=== PATIENT | male | born 1980 | race Caucasian/White ===

== ENCOUNTER 2017-01-30 00:32 | Emergency (ER) | payer OTHER ==
--- NOTE | 2017-01-30 01:59 | ED CLINICAL REPORT ---
Clinical Report - Physicians/Mid Levels [facility] [address] [place] [address] 01/30/2017 0:36 Patient: WILFREDO MANZANO Time Seen: 00:52. Arrived- By private vehicle. Historian- patient. HISTORY OF PRESENT ILLNESS Chief Complaint: LOWER EXTREMITY PAIN and ALTERED SENSATION. This started months ago and is still present. Severity is described as being moderate. The quality is noted to be dull, burning and similar to prior episodes (numbness). Not relieved by anything- worsened by standing. Symptoms located in the area of the right foot and left foot. The patient has not had redness. No swelling, bladder dysfunction, bowel dysfunction or motor loss. No difficulty walking. Sensory loss. Patient notes an injury. Patient denies a recent injury. Mechanism of injury- (Pt had a back injury at work, and has had ongoing issues with this. He has been trying to get L&I to send him to a back surgeon, and states that now, his new PCP has taken him off of his chronic pain medication and cleared him for return to work.). Similar symptoms previously: Many times. Recent medical care: The patient was seen recently at another facility in a clinic. REVIEW OF SYSTEMS No cough, chest pain, difficulty breathing, fever or skin rash. No enlarged lymph nodes, neck pain, back pain, headache or blurred vision. No sore throat, abdominal pain, vomiting, diarrhea or black stools. No difficulty with urination or bloody stools. All systems otherwise negative, except as recorded above. PAST HISTORY Problems: Diverticulitis. Gout. Peripheral Neuropathy. Peptic Ulcer Disease. Gastroesophageal Reflux Disease. Ulcers. Back Pain. Gastritis. Immunizations. Additional Surgeries: Diverticulitis. Medications: Methadone HCl Oral (Tablet 10 mg), 2xdaily. Allergies: Tylenol.(nausea). SOCIAL HISTORY Smoker- current status unknown. Occasional alcohol use. No drug use. ADDITIONAL NOTES The nursing notes have been reviewed. PHYSICAL EXAM Vital Signs: 01/30/2017 00:46 BP: 146/97. HR: 112. RR: 16. O2 saturation: 100%. Temp: 99.7 F. Pain level now: 10/28. Have been reviewed. Appearance: Alert. Oriented X3. No acute distress. Eyes: Pupils equal, round and reactive to light. Eyes normal inspection. ENT: Nose normal. Neck: Normal inspection. CVS: Normal heart rate and rhythm. Heart sounds normal. Respiratory: No respiratory distress. Breath sounds normal. Abdomen: Soft and nontender. Back: Mild vertebral tenderness over the mid and lower lumbar spine. Soft tissue tenderness in the right mid and lower and left mid and lower lumbar paraspinous region. Limited ROM in the back. Skin: Skin intact. Skin warm and dry. Normal skin color. Normal skin turgor. Extremities: No lower extremity edema. No signs of infection involving the lower extremities. Extremities otherwise negative. Neuro, Vascular and Tendons: No pulse deficit present. Neuro: Oriented X 3. No motor deficit. No sensory deficit. LABS, X-RAYS, AND EKG Pulse Oximetry: 01/30/2017 00:46 O2 saturation: 100%. (FIO2 - room air). Interpretation: normal. PROGRESS AND PROCEDURES Course of Care: I did speak with pt for a long while. His sx were largely chronic, and he was mainly concerned about the sensory deficit, which he stated his new PCP did not address. I agreed to refer pt to a new PCP, and I did amend his back to work order for now. No medications were given in the ED or as a prescription. Patient counseled in person regarding the patient's stable condition, diagnosis and need for follow-up. Concerns were addressed. Old medical records reviewed. Disposition: Discharged. Condition: stable. 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 INSTRUCTIONS Return to work (No bending, no work with arms above head, no working on ladders, no standing for more than 30 minutes without a 5 minute break from standing, until Mr. Manzano's new primary care physician (first appointment to follow) can evaluate him.). Warnings: Further evaluation is necessary. GENERAL WARNINGS: Return or contact your physician immediately if your condition worsens or changes unexpectedly, if not improving as expected, or if other problems arise. Your Current Medications: CONTINUE TAKING THE FOLLOWING MEDICATIONS: Methadone HCl Oral : Tablet 10 mg, 2xdaily. Understanding of the discharge instructions verbalized by patient. Follow-up with: [facility], Family Practice, , [address] [place] [address], [address], [place] [id number] Follow up. Call for the next available appointment. Reason for referral: Establish care. (Electronically signed by Grace Valdez MD 02/02/2017 19:46)
--- NOTE | 2017-01-30 01:59 | ED NURSING NOTES ---
Clinical Report - Nurses [facility] [address] [place] [place] [address] 01/30/2017 0:36 Patient: WILFREDO LEE [id number] TRIAGE Triage time 00:45 Jan 30 2017. Acuity: LEVEL 3. Chief Complaint: RIGHT LOWER EXTREMITY NUMBNESS. LEFT LOWER EXTREMITY NUMBNESS. Alert. DIANNE COMA SCORE: Dianne Coma Scale: 15- eyes open spontaneously (4); best verbal response- oriented x 4 (5); best motor response- obeys commands (6). --00:58 Diogenes Ho R.N. 00:46 01/30/17. BP: 146/97. HR: 112. RR: 16. O2 saturation: 100% on room air. Temp: 99.7 F (oral). Pain level now: 10. Additional comments: feet discomfort. --00:58 Diogenes Ho R.N. Weight: 102 kg stated. Height/Length: 73 inches Per Patient. BMI: 29.7. --00:58 Diogenes Ho R.N. Medications Methadone HCl Oral (Tablet 10 mg), 2xdaily. --00:51 Diogenes oH R.N. Medication/allergy information source: the patient. --00:58 Diogenes Ho R.N. Allergies Tylenol.(nausea) --00:51 Diogenes Ho R.N. History Arrived by private vehicle. Historian: patient. Accompanied by family. Primary physician (Vitaliy). ( Bilateral foot pain/numbness. Pt associates his feet problems to a back injury 2 years ago. His new PCP is going to cut off his Methadone tomorrow.). An injury may have occurred. Location of injuries: lower back, back, right shoulder and left shoulder. This occurred (about 4 months ago (onset)). Occurred at work. Provoking / relieving factors: worsened by standing and walking; relieved by standing and walking. (worsen the numbness). The patient has had trouble walking. Treatment IT HELP DESK ANALYST: None. PAST MEDICAL HX: Tetanus status: unknown. SOCIAL HX: Smoker- current status unknown (chews tobacco). Alcohol use; consumes beer occasionally and liquor occasionally. (cut back 7 months ago). No drug use. No infectious disease exposure. ABUSE ASSESSMENT: No report of abuse. FALL RISK ASSESSMENT: Fall risk assessment completed. No fall risk identified. NUTRITIONAL RISK ASSESSMENT: The nutritional risk assessment revealed no deficiencies. FUNCTIONAL ASSESSMENT: Functional assessment: no impairments noted. LEARNING NEEDS ASSESSMENT: The learning needs assessment revealed no barriers. SKIN INTEGRITY ASSESSMENT: Skin integrity risk assessment completed. No skin integrity risk identified. --00:58 Diogenes Ho R.N. PROBLEMS: Diverticulitis. Gout. Peripheral Neuropathy. Abdominal Pain. Peptic Ulcer Disease. Gastroesophageal Reflux Disease. Ulcers. Back Pain. Gastritis. Immunizations. --00:56 Diogenes Ho R.N. The following entry was modified by Diogenes Ho R.N., 00:56 <<STRICKEN ENTRY-- Hypertension. --17:30 Diogenes Ho R.N. --END STRIKE>>. ADDITIONAL SURGERIES: Diverticulitis. --00:56 Diogenes Ho R.N. Interventions ID band on patient. To treatment room. --00:58 Diogenes Ho R.N. PHYSICAL ASSESSMENT Ambulatory to room. GENERAL / NEURO / PSYCH: Oriented X 4. EXTREMITIES: Extremity pulses are within normal limits. Extremities exhibit normal ROM. No lower extremity edema. Normal gait. SKIN: Skin intact. Skin is warm and dry. --00:59 Diogenes Ho R.N. NURSING PROGRESS NOTES Reassurance given. Patient identifiers checked. Call light placed in reach. Side rails up x 1. Bed placed in lowest position. Brakes of bed on. Patient ready for evaluation- chart flagged and ED physician notified. --00:59 Diogenes Ho R.N. DISPOSITION / DISCHARGE Departure time: 0230. Condition at departure: unchanged. Discharge instructions provided and reviewed with the patient. Reviewed medication(s). Prescription(s) given to the patient (Lisinopril). Patient verbalized understanding. Written instructions provided in French. The patient was discharged by the physician. He was discharged home and unaccompanied at time of discharge. He left the Emergency Department ambulatory and via private vehicle. Patient driving. Medication list reviewed and validated with the patient. --02:51 Charu Stokes R.N. 02:30 01/30/17. BP: 140/90. HR: 100. RR: 18 (unlabored). O2 saturation: 100% on room air. Temp: deferred. Pain level now: 10/28. --02:51 Charu Stokes R.N. Locked/Released at 01/30/2017 2:51 by Charu Stokes R.N.
--- NOTE | 2017-01-30 01:59 | ED CLINICAL REPORT ---
Clinical Report - Physicians/Mid Levels [facility] [address] [place] [address] 01/30/2017 0:36 Patient: WILFREDO MANZANO Time Seen: 00:52. Arrived- By private vehicle. Historian- patient. HISTORY OF PRESENT ILLNESS Chief Complaint: LOWER EXTREMITY PAIN and ALTERED SENSATION. This started months ago and is still present. Severity is described as being moderate. The quality is noted to be dull, burning and similar to prior episodes (numbness). Not relieved by anything- worsened by standing. Symptoms located in the area of the right foot and left foot. The patient has not had redness. No swelling, bladder dysfunction, bowel dysfunction or motor loss. No difficulty walking. Sensory loss. Patient notes an injury. Patient denies a recent injury. Mechanism of injury- (Pt had a back injury at work, and has had ongoing issues with this. He has been trying to get L&I to send him to a back surgeon, and states that now, his new PCP has taken him off of his chronic pain medication and cleared him for return to work.). Similar symptoms previously: Many times. Recent medical care: The patient was seen recently at another facility in a clinic. REVIEW OF SYSTEMS No cough, chest pain, difficulty breathing, fever or skin rash. No enlarged lymph nodes, neck pain, back pain, headache or blurred vision. No sore throat, abdominal pain, vomiting, diarrhea or black stools. No difficulty with urination or bloody stools. All systems otherwise negative, except as recorded above. PAST HISTORY Problems: Diverticulitis. Gout. Peripheral Neuropathy. Peptic Ulcer Disease. Gastroesophageal Reflux Disease. Ulcers. Back Pain. Gastritis. Immunizations. Additional Surgeries: Diverticulitis. Medications: Methadone HCl Oral (Tablet 10 mg), 2xdaily. Allergies: Tylenol.(nausea). SOCIAL HISTORY Smoker- current status unknown. Occasional alcohol use. No drug use. ADDITIONAL NOTES The nursing notes have been reviewed. PHYSICAL EXAM Vital Signs: 01/30/2017 00:46 BP: 146/97. HR: 112. RR: 16. O2 saturation: 100%. Temp: 99.7 F. Pain level now: 10/28. Have been reviewed. Appearance: Alert. Oriented X3. No acute distress. Eyes: Pupils equal, round and reactive to light. Eyes normal inspection. ENT: Nose normal. Neck: Normal inspection. CVS: Normal heart rate and rhythm. Heart sounds normal. Respiratory: No respiratory distress. Breath sounds normal. Abdomen: Soft and nontender. Back: Mild vertebral tenderness over the mid and lower lumbar spine. Soft tissue tenderness in the right mid and lower and left mid and lower lumbar paraspinous region. Limited ROM in the back. Skin: Skin intact. Skin warm and dry. Normal skin color. Normal skin turgor. Extremities: No lower extremity edema. No signs of infection involving the lower extremities. Extremities otherwise negative. Neuro, Vascular and Tendons: No pulse deficit present. Neuro: Oriented X 3. No motor deficit. No sensory deficit. LABS, X-RAYS, AND EKG Pulse Oximetry: 01/30/2017 00:46 O2 saturation: 100%. (FIO2 - room air). Interpretation: normal. PROGRESS AND PROCEDURES Course of Care: I did speak with pt for a long while. His sx were largely chronic, and he was mainly concerned about the sensory deficit, which he stated his new PCP did not address. I agreed to refer pt to a new PCP, and I did amend his back to work order for now. No medications were given in the ED or as a prescription. Patient counseled in person regarding the patient's stable condition, diagnosis and need for follow-up. Concerns were addressed. Old medical records reviewed. Disposition: Discharged. Condition: stable. 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 INSTRUCTIONS Return to work (No bending, no work with arms above head, no working on ladders, no standing for more than 30 minutes without a 5 minute break from standing, until Mr. Manzano's new primary care physician (first appointment to follow) can evaluate him.). Warnings: Further evaluation is necessary. GENERAL WARNINGS: Return or contact your physician immediately if your condition worsens or changes unexpectedly, if not improving as expected, or if other problems arise. Your Current Medications: CONTINUE TAKING THE FOLLOWING MEDICATIONS: Methadone HCl Oral : Tablet 10 mg, 2xdaily. Understanding of the discharge instructions verbalized by patient. Follow-up with: [facility], Family Practice, , [address] [place] [address], [address], [place] [address] Follow up. Call for the next available appointment. Reason for referral: Establish care. (Electronically signed by Grace Valdez MD 02/02/2017 19:46)
--- NOTE | 2017-01-30 01:59 | ED NURSING NOTES ---
Clinical Report - Nurses [facility] [address] [place] [address] 01/30/2017 0:36 [id number] Triage time 00:45 Jan 30 2017. Acuity: LEVEL 3. Chief Complaint: RIGHT LOWER EXTREMITY NUMBNESS. LEFT LOWER EXTREMITY NUMBNESS. Alert. DIANNE COMA SCORE: Dianne Coma Scale: 15- eyes open spontaneously (4); best verbal response- oriented x 4 (5); best motor response- obeys commands (6). --00:58 Diogenes Ho R.N. 00:46 01/30/17. BP: 146/97. HR: 112. RR: 16. O2 saturation: 100% on room air. Temp: 99.7 F (oral). Pain level now: 10. Additional comments: feet discomfort. --00:58 Diogenes Ho R.N. Weight: 102 kg stated. Height/Length: 73 inches Per Patient. BMI: 29.7. --00:58 Diogenes Ho R.N. Medications Methadone HCl Oral (Tablet 10 mg), 2xdaily. --00:51 Diogenes Ho R.N. Medication/allergy information source: the patient. --00:58 Diogenes Ho R.N. Allergies Tylenol.(nausea) --00:51 Diogenes Ho R.N. History Arrived by private vehicle. Historian: patient. Accompanied by family. Primary physician (Vitaliy). ( Bilateral foot pain/numbness. Pt associates his feet problems to a back injury 2 years ago. His new PCP is going to cut off his Methadone tomorrow.). An injury may have occurred. Location of injuries: lower back, back, right shoulder and left shoulder. This occurred (about 4 months ago (onset)). Occurred at work. Provoking / relieving factors: worsened by standing and walking; relieved by standing and walking. (worsen the numbness). The patient has had trouble walking. Treatment EVENT DECORATOR AND DESIGNER: None. PAST MEDICAL HX: Tetanus status: unknown. SOCIAL HX: Smoker- current status unknown (chews tobacco). Alcohol use; consumes beer occasionally and liquor occasionally. (cut back 7 months ago). No drug use. No infectious disease exposure. ABUSE ASSESSMENT: No report of abuse. FALL RISK ASSESSMENT: Fall risk assessment completed. No fall risk identified. NUTRITIONAL RISK ASSESSMENT: The nutritional risk assessment revealed no deficiencies. FUNCTIONAL ASSESSMENT: Functional assessment: no impairments noted. LEARNING NEEDS ASSESSMENT: The learning needs assessment revealed no barriers. SKIN INTEGRITY ASSESSMENT: Skin integrity risk assessment completed. No skin integrity risk identified. --00:58 Diogenes Ho R.N. PROBLEMS: Diverticulitis. Gout. Peripheral Neuropathy. Abdominal Pain. Peptic Ulcer Disease. Gastroesophageal Reflux Disease. Ulcers. Back Pain. Gastritis. Immunizations. --00:56 Diogenes Ho R.N. The following entry was modified by Diogenes Ho R.N., 00:56 <<STRICKEN ENTRY-- Hypertension. --17:30 Diogenes Ho R.N. --END STRIKE>>. ADDITIONAL SURGERIES: Diverticulitis. --00:56 Diogenes Ho R.N. Interventions ID band on patient. To treatment room. --00:58 Diogenes Ho R.N. PHYSICAL ASSESSMENT Ambulatory to room. GENERAL / NEURO / PSYCH: Oriented X 4. EXTREMITIES: Extremity pulses are within normal limits. Extremities exhibit normal ROM. No lower extremity edema. Normal gait. SKIN: Skin intact. Skin is warm and dry. --00:59 Diogenes Ho R.N. NURSING PROGRESS NOTES Reassurance given. Patient identifiers checked. Call light placed in reach. Side rails up x 1. Bed placed in lowest position. Brakes of bed on. Patient ready for evaluation- chart flagged and ED physician notified. --00:59 Diogenes Ho R.N. DISPOSITION / DISCHARGE Departure time: 0230. Condition at departure: unchanged. Discharge instructions provided and reviewed with the patient. Reviewed medication(s). Prescription(s) given to the patient (Lisinopril). Patient verbalized understanding. Written instructions provided in Romansh. The patient was discharged by the physician. He was discharged home and unaccompanied at time of discharge. He left the Emergency Department ambulatory and via private vehicle. Patient driving. Medication list reviewed and validated with the patient. --02:51 Charu Stokes R.N. 02:30 01/30/17. BP: 140/90. HR: 100. RR: 18 (unlabored). O2 saturation: 100% on room air. Temp: deferred. Pain level now: 10/28. --02:51 Charu Stokes R.N. Locked/Released at 01/30/2017 2:51 by Charu Stokes R.N.
--- NOTE | 2017-02-02 19:46 | ED MAR SUMMARY ---
..... Medication Administration Record [facility] [address] [place] [id number] Patient: WILFREDO LEE Visit ID: [id number] 36y, M Weight: 102.0 kg Height/Length: 73 in BMI: 29.7 ALLERGIES: Tylenol
--- NOTE | 2017-02-02 19:46 | ED MED RECONCILIATION SUMMARY ---
Patient: WILFREDO LEE Medication Reconciliation Report [facility] VisitID: [id number] [address] [place] [address] 36y, M Registration Date/Time: 01/30/2017 Weight: 102.0 kg Height/Length: 73 in. BMI: 29.7 ALLERGIES: Tylenol The patient's Home Medications are listed below: CONTINUE TAKING THE FOLLOWING MEDICATIONS: Methadone HCl Oral (10 mg), 2xdaily The source(s) of the original Home Medication information: patient The following Medications were given to the patient in the Emergency Department: None. The following Medications were prescribed to the patient: None.
--- NOTE | 2017-02-02 19:46 | ED DISCHARGE INSTRUCTIONS ---
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 INSTRUCTIONS Return to work (No bending, no work with arms above head, no working on ladders, no standing for more than 30 minutes without a 5 minute break from standing, until Mr. Manzano's new primary care physician (first appointment to follow) can evaluate him.). Warnings: Further evaluation is necessary. GENERAL WARNINGS: Return or contact your physician immediately if your condition worsens or changes unexpectedly, if not improving as expected, or if other problems arise. Your Current Medications: CONTINUE TAKING THE FOLLOWING MEDICATIONS: Methadone HCl Oral : Tablet 10 mg, 2xdaily. Understanding of the discharge instructions verbalized by patient. Follow-up with: [facility], , [address] [place] [address], [id number] [id number] Follow up. Call for the next available appointment. Reason for referral: Establish care. ADDITIONAL INFORMATION Back Pain [Acute Or Chronic] Back pain is usually caused by an injury to the muscles or ligaments of the spine. Sometimes the disks that separate each bone in the spine may bulge and cause pain by pressing on a nearby nerve. Back pain may also appear after a sudden twisting/bending force (such as in a car accident), after a simple awkward movement, or lifting something heavy with poor body positioning. In either case, muscle spasm is often present and adds to the pain. Acute back pain usually gets better in one to two weeks. Back pain related to disk disease, arthritis in the spinal joints or spinal stenosis (narrowing of the spinal canal) can become chronic and last for months or years. Unless you had a physical injury (for example, a car accident or fall) X-rays are usually not ordered for the initial evaluation of back pain. If pain continues and does not respond to medical treatment, x-rays and other tests may be performed at a later time. Home Care: You may need to stay in bed the first few days. But, as soon as possible, begin sitting or walking to avoid problems with prolonged bed rest (muscle weakness, worsening back stiffness and pain, blood clots in the legs). When in bed, try to find a position of comfort. A firm mattress is best. Try lying flat on your back with pillows under your knees. You can also try lying on your side with your knees bent up towards your chest and a pillow between your knees. Avoid prolonged sitting. This puts more stress on the lower back than standing or walking. During the first two days after injury, apply an ICE PACK to the painful area for 20 minutes every 2-4 hours. This will reduce swelling and pain. HEAT (hot shower, hot bath or heating pad) works well for muscle spasm. You can start with ice, then switch to heat after two days. Some patients feel best alternating ice and heat treatments. Use the one method that feels the best to you. You may use acetaminophen (Tylenol) or ibuprofen (Motrin, Advil) to control pain, unless another pain medicine was prescribed. [NOTE: If you have chronic liver or kidney disease or ever had a stomach ulcer or GI bleeding, talk with your doctor before using these medicines.] Be aware of safe lifting methods and do not lift anything over 15 pounds until all the pain is gone. Follow Up with your doctor or this facility if your symptoms do not start to improve after one week. Physical therapy may be needed. [NOTE: If X-rays were taken, they will be reviewed by a radiologist. You will be notified of any new findings that may affect your care.] Get Prompt Medical Attention if any of the following occur: Pain becomes worse or spreads to your legs Weakness or numbness in one or both legs Loss of bowel or bladder control Numbness in the groin or genital area Paraesthesias Paraesthesia refers to a burning or prickling sensation that is sometimes felt in the hands, arms, legs or feet. It can also occur in other parts of the body. It can also feel like tingling or numbness, skin crawling or itching.The sensation is usually painless. Most people have experienced pins and needles. This feeling happens when legs have been crossed for too long and pressure is placed on a nerve. This is a temporary paraesthesia. It quickly goes away once the pressure is relieved. There are many possible causes for chronic paraesthesias. These include such disorders as stroke, herniated disk (pressing on a nerve), trapped nerve in the shoulder, elbow or wrist (such as carpal tunnel syndrome), vitamin deficiencies or even certain medicines. Laboratory tests are needed to make an accurate diagnosis. These tests may include blood tests, X-ray, CT (computerized tomography) scan or a muscle test (electromyography).Depending on the cause, treatment may include physical therapy. Home Care: Do not make any changes to your medicines without advice from your doctor. If vitamins have been prescribed, remember to take them daily at the recommended dose. Because of a decrease in feeling, a numb hand or foot may be more prone to injury. Take care to protect these areas from cuts, bumps, bruises, rm or other injury. Keep your nails trimmed and wash your hands and feet often. Wear shoes that fit well to avoid pressure points, blisters and ulcers. Look at your hands and feet carefully (including the soles of your feet and between your toes) at least once a week and notify your doctor of any open wounds or signs of infection. Follow Up with your doctor or as advised by our staff. You may need further testing to determine the exact cause of your paraesthesia. [NOTE: If blood tests, X-ray, CT scan or electromyography were done, specialists will review them. You will be notified of any new findings that may affect your care.] Get Prompt Medical Attention if any of the following occur: Numbness or weakness of the face, one arm or one leg Slurred speech, confusion, trouble speaking, walking or seeing Severe headache, fainting spell, dizziness or seizure Chest, arm, neck or upper back pain Loss of bladder or bowel control Open wound with redness, swelling or pus You have been given the following additional information: Back Pain (Acute Or Chronic) Paraesthesias Return to work (No bending, no work with arms above head, no working on ladders, no standing for more than 30 minutes without a 5 minute break from standing, until Mr. Manzano's new primary care physician (first appointment to follow) can evaluate him.). (Electronically signed by Grace Valdez MD 02/02/2017 19:46)
--- NOTE | 2017-02-02 19:46 | ED MED RECONCILIATION SUMMARY ---
Patient: WILFREDO LEE Medication Reconciliation Report [facility] VisitID: [id number] [address] [place] [address] 36y, M Registration Date/Time: 01/30/2017 Weight: 102.0 kg Height/Length: 73 in. BMI: 29.7 ALLERGIES: Tylenol The patient's Home Medications are listed below: CONTINUE TAKING THE FOLLOWING MEDICATIONS: Methadone HCl Oral (10 mg), 2xdaily The source(s) of the original Home Medication information: patient The following Medications were given to the patient in the Emergency Department: None. The following Medications were prescribed to the patient: None.
--- NOTE | 2017-02-02 19:46 | ED MAR SUMMARY ---
..... Medication Administration Record [facility] [address] [place], [place] [id number] Patient: WILFREDO LEE Visit ID: [id number] 36y, M Weight: 102.0 kg Height/Length: 73 in BMI: 29.7 ALLERGIES: Tylenol
== END 2017-01-30 02:30 | disposition home or self-care (01) ==
LOC: ED SRH 00:32
DX: M51.26 Other intervertebral disc displacement, lumbar region (principal); R20.9 Unspecified disturbances of skin sensation; Z79.891 Long term (current) use of opiate analgesic; Z88.6 Allergy status to analgesic agent

== ENCOUNTER 2017-04-02 13:41 | Emergency (ER) | payer OTHER ==
--- NOTE | 2017-04-02 15:20 | ED ORDER SUMMARY ---
..... Patient: WILFREDO LEE OrderSheet [facility] VisitID: [id number] [place] [address] 37y, M Registration Date/Time: 04/02/2017 ORDER SHEET Weight: 104.3 kg (stated) Allergies: Tylenol GENERAL ORDERS: CBC w Diff Urgent (14:35 04/02/2017 MCook R.N. per protocol) (14:35 MCook R.N.) (Ack 14:37 KHoerner) CMP Urgent (14:35 04/02/2017 MCook R.N. per protocol) (14:35 MCook R.N.) (Ack 14:37 KHoerner) UA-Culture if indicated Urgent (14:35 04/02/2017 MCook R.N. per protocol) (14:35 MCook R.N.) (Ack 14:37 KHoerner) MEDICATION ORDERS: IV FLUIDS: IV NS : initial bolus none -, then 1000 mL/hr for X1 (NOW) (14:34 04/02/2017 MCook R.N. per protocol) (14:38 MCook R.N.) Toradol IV 30 mg (NOW) (14:46 04/02/2017 MCook R.N. verbal order read back to HBivens A.R.N.P.) (14:46 MCook R.N.) Ceftriaxone IV 1 gm/50mL (NOW) (15:19 04/02/2017 HBivens A.R.N.P.) (Ack 15:20 MCook R.N.) (15:46 MCook R.N.) ORDER SHEET NOTES: [Electronically signed by Stephen Bailon R.N. (16:22 04/02/2017)] [Electronically signed by Reyna Mendiola.R.N.P. (21:31 04/02/2017)] [Electronically locked/signed by Stephen Bailon R.N. (16:22 04/02/2017)]
--- NOTE | 2017-04-02 15:20 | ED ORDER SUMMARY ---
..... Patient: WIFLREDO LEE OrderSheet [facility] VisitID: [id number] [place] [address] 37y, M Registration Date/Time: 04/02/2017 ORDER SHEET Weight: 104.3 kg (stated) Allergies: Tylenol GENERAL ORDERS: CBC w Diff Urgent (14:35 04/02/2017 MCook R.N. per protocol) (14:35 MCook R.N.) (Ack 14:37 KHoerner) CMP Urgent (14:35 04/02/2017 MCook R.N. per protocol) (14:35 MCook R.N.) (Ack 14:37 KHoerner) UA-Culture if indicated Urgent (14:35 04/02/2017 MCook R.N. per protocol) (14:35 MCook R.N.) (Ack 14:37 KHoerner) MEDICATION ORDERS: IV FLUIDS: IV NS : initial bolus none -, then 1000 mL/hr for X1 (NOW) (14:34 04/02/2017 MCook R.N. per protocol) (14:38 MCook R.N.) Toradol IV 30 mg (NOW) (14:46 04/02/2017 MCook R.N. verbal order read back to HBivens A.R.N.P.) (14:46 MCook R.N.) Ceftriaxone IV 1 gm/50mL (NOW) (15:19 04/02/2017 HBivens A.R.N.P.) (Ack 15:20 MCook R.N.) (15:46 MCook R.N.) ORDER SHEET NOTES: [Electronically signed by Stephen Bailon R.N. (16:22 04/02/2017)] [Electronically signed by Reyna Mendiola.R.N.P. (21:31 04/02/2017)] [Electronically locked/signed by Stephen Bailon R.N. (16:22 04/02/2017)]
--- NOTE | 2017-04-02 15:20 | ED NURSING NOTES ---
Clinical Report - Nurses [facility] [address] [place] [address] 04/02/2017 13:41 Patient: WILFREDO LEE TRIAGE Triage time 14:Apr 02 2017. Acuity: LEVEL 3. Chief Complaint: (L sided flank pain and hematuria). Alert. No acute distress. --14:10 Stephen Bailon R.N. 14:06 04/02/17. BP: 121/87. HR: 106. RR: 22. O2 saturation: 100% on room air. Temp: 97.4 F. Pain level now: 06/28. --14:10 Stephen Bailon R.N. Weight: 104.3 kg stated. Height/Length: 73 inches Per Patient. BMI: 30.3. --14:06 Stephen Bailon R.N. Medications Methadone HCl Oral (Tablet 10 mg), 2xdaily. --14:08 Stephen Bailon R.N. LIsinopril. --14:08 Stephen Bailon R.N. Allergies Tylenol.(nausea) --14:08 Stephen Bailon R.N. History Arrived by private vehicle. Historian: patient. This started today. Last oral intake by patient was breakfast. Treatment STORE STANDARDS ASSOCIATE: (Methadone). PAST MEDICAL HX: Peptic ulcer disease. Immunizations: up-to-date. SOCIAL HX: Smoker- current status unknown (chews). Occasional alcohol use. No drug use. No infectious disease exposure. ABUSE ASSESSMENT: No report of abuse. SELF HARM ASSESSMENT: A self harm assessment was performed. The patient answered "no" to the question "Have you recently felt down, depressed, or hopeless?" and "Do you have thoughts of harming or killing yourself?". FALL RISK ASSESSMENT: Fall risk assessment completed. No fall risk identified. NUTRITIONAL RISK ASSESSMENT: The nutritional risk assessment revealed no deficiencies. FUNCTIONAL ASSESSMENT: Functional assessment: no impairments noted. LEARNING NEEDS ASSESSMENT: The learning needs assessment revealed no barriers. SKIN INTEGRITY ASSESSMENT: Skin integrity risk assessment completed. No skin integrity risk identified. --14:10 Stephen Bailon R.N. PROBLEMS: Paresthesia. Diverticulitis. Gout. Peripheral Neuropathy. Abdominal Pain. Gastroesophageal Reflux Disease. Ulcers. Back Pain. Gastritis. Immunizations. --14:08 Stephen Bailon R.N. L5-S1 herniation. --14:48 Stephen Bailon R.N. The following entry was modified by Stephen Bailon R.N., 14:48 <<STRICKEN ENTRY-- Peptic Ulcer Disease. --23:15 Stephen Bailon R.N. --END STRIKE>>. ADDITIONAL SURGERIES: Appendectomy. Diverticulitis. --14:08 Stephen Bailon R.N. Interventions ID band on patient. To treatment room. --14:10 Stephen Bailon R.N. PHYSICAL ASSESSMENT Ambulatory to room. ( Pt reporting L-sided flank pain.). GENERAL / NEURO / PSYCH: Alert. Oriented X 4. Appears in distress. RESPIRATORY: Mild respiratory distress. Breath sounds within normal limits. CVS: Capillary refill less than 2 seconds. GI / : Abdomen soft and nontender. SKIN: Skin is warm and dry. Skin is diaphoretic. --14:14 Stephen Bailon R.N. NURSING PROGRESS NOTES The plan of care for this patient has been created. Monitoring of patient in place. Patient gowned. Head of bed elevated. Reassurance given. Patient ID band checked for patient name and birthdate: patient confirmed. Instructions provided to collect clean catch urine and patient verbalized understanding. Clean catch urine collected with return of yellow-colored cloudy urine; sample sent to lab. Specimen labeled in the presence of the patient. Two patient identifiers checked. Call light placed in reach. Side rails up x 2. Bed placed in lowest position. Patient ready for evaluation- ED physician notified. --14:15 Stephen Bailon R.N. 14:15 04/02/2017 Site #1 started via IV in the right antecubital space with an 20g angiocath, with aseptic technique and good blood return; one attempt. Blood drawn: rainbow set. Labeled in the presence of the patient and sent to the lab. Saline lock flushed with 10 mL saline. --14:15 Stephen Bailon R.N. 14:38 04/02/2017 Started bag #1 1000 mL IV Fluids IV NS (Saline); bolus of 1000 mL over 1 hour(s) via site #1. Allergies verified and confirmed 5 rights. IV patency established. IV site checked: no pain, redness, or swelling. IV flushed thoroughly pre- and post-medication administration. Completed per protocol. --14:38 Stephen Bailon R.N. Patient waiting for evaluation. --14:39 Stephen Bailon R.N. 14:39 04/02/17. BP: 120/83. HR: 105. RR: 18. O2 saturation: 99% on room air. Pain level now: 06/28. --14:39 Stephen Bailon R.N. ( Pt has been resting quietly, apparently asleep, reports he still has pain.). --14:41 Stephen Bailon R.N. 14:46 04/02/2017 Toradol IVP 30 mg given over 2 minute(s) via site #1. Allergies verified and confirmed 5 rights. IV patency established. IV site checked: no pain, redness, or swelling. IV flushed thoroughly pre- and post-medication administration. IVP given by RN. --14:46 Stephen Bailon R.N. 15:41 04/02/2017 IV Fluids IV NS Discontinued: bag #1 infused upon discharge. Total amount infused: 1000 mL. IV patency established. IV site checked: no pain, redness, or swelling. IV flushed thoroughly. --15:47 Stephen Bailon R.N. 15:46 04/02/2017 Started 1 gm of Ceftriaxone IVPB in bag #1 50 mL; at 100 mL/hr over 30 minute(s) via site #1 via IV pump. Allergies verified and confirmed 5 rights. IV patency established site checked: no pain, redness, or swelling flushed thoroughly pre- and post-medication administration. Completed per protocol. --15:46 Stephen Bailon R.N. 15:47 04/02/2017 Toradol IVP Response: no adverse reaction symptoms are the same. --16:13 Stephen Bailon R.N. 16:04/02/2017 Site #1 removed upon discharge. Bandaid applied. --16:13 Stephen Bailon R.N. 16:04/02/2017 Ceftriaxone IVPB Discontinued: bag #1 infused. Total amount infused: 50 mL. IV patency established. IV site checked: no pain, redness, or swelling. IV flushed thoroughly. --16:13 Stephen Bailon R.N. DISPOSITION / DISCHARGE 15:47 04/02/17. BP: 117/79. HR: 107. RR: 16. O2 saturation: 99% on room air. Temp: 98.4 F. Pain level now: 05/28. --15:48 Stephen Bailon R.N. Condition at departure: improved and stable. The goals identified in the patient's plan of care were met. No learning barriers present. Discharge instructions provided and reviewed with the patient. Reviewed warnings (Pt instructed not to drive while taking narcotics.). Reviewed medication(s) side effects, precautions, dosing and course information. Prescription(s) given to the patient (Cipro, Toradol, [place]). Reviewed referral to a primary care physician for followup. Patient verbalized understanding. Written instructions provided in [place]. The patient was discharged home. He left the Emergency Department ambulatory and via private vehicle. Patient driving. ( Pt dc'd in stable condition, ambulatory, reports he is feeling better, all medications given. Pt verbalized understanding of POC.). --16:12 Stephen Bailon R.N. Departure time: 16:12 Apr 02 2017. --16:12 Stephen Bailon R.N. Locked/Released at 04/02/2017 16:22 by Stephen Bailon R.N.
--- NOTE | 2017-04-02 15:20 | ED CLINICAL REPORT ---
Clinical Report - Physicians/Mid Levels Formerly [facility] [address] [place] [address] 04/02/2017 13:41 Patient: WIFLREDO LEE Time Seen: 14:52; initial patient contact, initial documentation, patient care assumed. Arrived- By private vehicle. Historian- patient. HISTORY OF PRESENT ILLNESS Chief Complaint: HEMATURIA and LEFT FLANK PAIN. This started today and is still present and worsening. (as the day goes on). The problem is described as severe. It was abrupt in onset. No penile discharge, urinary frequency, genital lesion, testicular pain or urgency of urination. No Hussein catheter problem or inguinal swelling. He has had discomfort with urination. He has had constant, sharp left-sided flank pain. Able to void. Not voiding only small amounts. The patient has had unprotected intercourse but not had an exposure to a sexually transmitted disease. No homosexual activity. Similar symptoms previously: None. Recent medical care: Not recently seen/assessed. REVIEW OF SYSTEMS No fever, abdominal pain, vomiting, diarrhea or black stools. No bloody stools, chest pain or difficulty breathing. He has had flank pain. The patient has had hematuria. All systems otherwise negative, except as recorded above. PAST HISTORY See nurses notes. ( PROBLEMS: Paresthesia. Diverticulitis. Gout. Peripheral Neuropathy. Abdominal Pain. Gastroesophageal Reflux Disease. Ulcers. Back Pain. Gastritis. Immunizations. --14:08 Stephen Bailon RCandidaN. L5-S1 herniation. --14:48 Stephen Bailon RNichol. ADDITIONAL SURGERIES: Appendectomy. Diverticulitis. --14:08 Stephen Bailon R.N.). SOCIAL HISTORY Smoker- current status unknown (chews). Occasional alcohol use. No drug use. No recent travel. Is a local resident. FAMILY HISTORY Negative. ADDITIONAL NOTES The nursing notes have been reviewed with agreement regarding the chief complaint, HPI, ROS, PMH and patient medications and allergies. PHYSICAL EXAM Vital Signs: 04/02/2017 14:06 BP: 121/87. HR: 106. RR: 22. O2 saturation: 100%. Temp: 97.4 F. Pain level now: 06/28. Have been reviewed as abnormal and appear to be correct. Blood pressure normal. Tachycardic. Respiratory rate normal. Temperature normal. Oxygen saturation normal. Appearance: Alert. Oriented X3. No acute distress. ENT: Normal external inspection. Pharynx normal. Neck: Neck supple. CVS: Heart sounds normal. Respiratory: No respiratory distress. Breath sounds normal. Abdomen: Soft and nontender. Bowel sounds normal. No organomegaly. No mass. Back: Normal external inspection. Skin: Skin warm and dry. Normal skin color. No rash. Normal skin turgor. Extremities: Extremities exhibit normal ROM. No lower extremity edema. Neuro: Oriented X 3. No motor deficit. No sensory deficit. LABS, X-RAYS, AND EKG Laboratory Tests: UA-Culture if indicated: (RICHIE: 04/02/2017 14:00) ( [facility] [place] 14[facility]59[facility] Final results Test Result Flag Units (Reference) URINE COLOR YELLOW URINE APPEARANCE CLEAR URINE GLUCOSE NEGATIVE (NEGATIVE) URINE BILIRUBIN NEGATIVE (NEGATIVE) URINE KETONE NEGATIVE (NEGATIVE) URINE SPECIFIC GRAVITY 1.015 (1.010-1.030) URINE PH 6.0 (5.0-8.0) URINE PROTEIN 2+ (NEGATIVE) URINE UROBILINOGEN 0.2 EU/dL (0.2-1.0) URINE NITRITE NEGATIVE (NEGATIVE) URINE BLOOD 3+ (NEGATIVE) URINE LEUK ESTERASE POSITIVE (NEGATIVE) URINE RBC 75-100 rbc/hpf (0-1) URINE WBC 75-100 wbc/hpf (0-1) URINE EPITHELIAL CELLS 1-3 EPI/hpf (0-5) URINE BACTERIA FEW (1+) (NONE SEEN) URINE COMMENT CULTURE INDICATED URINE CULTURES ARE SET-UP BASED ON THE FOLLOWING CRITERIA:POSITIVE NITRITEPOSITIVE LEUKOCYTE ESTERASEGREATER THAN 10 WHITE BLOOD CELLSMODERATE (2+) OR GREATER BACTERIA CBC w Diff: (RICHIE: 04/02/2017 14:00) ( [facility] [place] 04/02/[facility] 15:02) Final results Test Result Flag Units (Reference) WHITE BLOOD COUNT 17.6 H K/uL (4.5-11.5) RED BLOOD COUNT 5.81 M/uL (4.50-5.90) HEMOGLOBIN 15.8 gm/dL (13.5-17.5) HEMATOCRIT 47.6 % (41.0-53.0) MEAN CELL VOLUME 82 fL (80-100) MEAN CORPUSCULAR HGB 27 pg (26-34) MEAN CORPUSCULAR HGB CONC 33 g/dL (31-37) RED CELL DISTRIBUTION WIDTH 13.7 % (11.6-14.8) PLATELET COUNT 276 K/uL (150-400) NEUTROPHIL % 75.9 H % (50-75) LYMPH % 14.2 L % (25-40) MONO % 9.2 % (3-14) EOSINOPHIL % 0.5 % (0-4) BASOPHIL % 0.2 % (0-2) CMP: (RICHIE: 04/02/2017 14:00) ( MsgRcvd 04/02/2017 14:52) Final results Test Result Flag Units (Reference) GLUCOSE 107 mg/dL (70-110) BUN 16 mg/dL (7-18) CREATININE 1.1 mg/dL (0.6-1.3) Estimated GFR >60 mL/min Estimated GFR- >60 mL/min Note: Persistent reduction over 3 months in eGFR<60 mL/min/1.73 m2 defines CKD. Patients with eGFR values>=60 mL/min/1.73 m2 may also have CKD if evidence ofpersistent proteinuria. Additional information may be foundat [email or web address].org. SODIUM 137 mmol/L (136-145) POTASSIUM 4.0 mmol/L (3.5-5.1) CHLORIDE 97 L mmol/L (98-107) CARBON DIOXIDE 32 mmol/L (21-32) CALCIUM 8.9 mg/dL (8.5-10.1) TOTAL PROTEIN 7.9 g/dL (6.4-8.2) ALBUMIN 4.0 g/dL (3.3-5.0) BILIRUBIN, TOTAL 1.0 mg/dL (0.0-1.0) ALKALINE PHOSPHATASE 42 L U/L (46-116) AST (SGOT) 20 U/L (15-37) ALT (SGPT) 50 U/L (12-78) . PROGRESS AND PROCEDURES Course of Care: pt very demanding as soon as I entered, telling me to turn lights off, find him a pillow, reposition the bed, move pillow from behind his head to between his knees. 04/02/2017 14:39 BP: 120/83. HR: 105. RR: 18. O2 saturation: 99%. Pain level now: 9/10. Vital Signs: have been reviewed as abnormal and appear to be correct. Blood pressure normal. Tachycardic. Respiratory rate normal. Temperature normal. Oxygen saturation normal. Patient counseled in person regarding the patient's stable condition, test results and diagnosis. 15:06. Differential Diagnosis: Other possible considerations: uti, pyelo, kidney stone, std, prostatitis, kidney disease. Above considerations are based on history, physical exam, reassessment and laboratory data. Differential diagnosis was discussed with patient. Disposition: Discharged home in good and improved condition (15:20). Condition: good and stable. CLINICAL IMPRESSION Acute urinary tract infection with cystitis, pyelonephritis and hematuria. Not associated with indwelling catheter or obstruction. INSTRUCTIONS Drink plenty of fluids. Warnings: GENERAL WARNINGS: Return or contact your physician immediately if your condition worsens or changes unexpectedly, if not improving as expected, or if other problems arise. Specifically return if problem worsens. Prescription Medications: Cipro 500 mg: take 1 tab orally every 12 hours for 10 days. Dispense twenty (20). No refills. Substitution is permissible. [place] 5 mg / 325 mg tablets: take 1 to 2 orally every 6 hours as needed for pain. Dispense fifteen (15). No refills. Substitution is permissible. Toradol 10 mg tablets: Take 1 tablet orally every 6 hours as needed. Dispense fifteen (15). No refills. Substitution is permissible. Follow-up: Follow up with your doctor in about two days even if well. Call for an appointment. Summary of care provided to patient. Understanding of the discharge instructions verbalized by patient. (Electronically signed by Reyna Mendiola A.R.N.P. 04/02/2017 21:31)
--- NOTE | 2017-04-02 21:32 | ED MED RECONCILIATION SUMMARY ---
Patient: WILFREDO LEE Medication Reconciliation Report [facility] VisitID: [id number] [place] [address] 37y, M Registration Date/Time: 04/02/2017 Weight: 104.3 kg Height/Length: 73 in. BMI: 30.3 ALLERGIES: Tylenol The patient's Home Medications are listed below: THE FOLLOWING MEDICATIONS NEED TO BE RECONCILED: LIsinopril Methadone HCl Oral (10 mg), 2xdaily The source(s) of the original Home Medication information: Not obtained. The following Medications were given to the patient in the Emergency Department: IV NS IV Fluids bolus 1000 mL over 1 hour(s), administered: 04/02/2017 2:38:00 PM Toradol [IVP] IVP 30 mg, administered: 04/02/2017 2:46:00 PM Ceftriaxone [IVPB] IVPB bolus 0, then 1 gm 100 mL/hr, administered: 04/02/2017 3:46:00 PM The following Medications were prescribed to the patient: Cipro 500 mg: take 1 tab orally every 12 hours for 10 days. Dispense twenty (20). No refills. Substitution is permissible. -- Reyna Mendiola, A.R.N.P. [place] 5 mg / 325 mg tablets: take 1 to 2 orally every 6 hours as needed for pain. Dispense fifteen (15). No refills. Substitution is permissible. -- Reyna Mendiola A.R.N.P. Toradol 10 mg tablets: Take 1 tablet orally every 6 hours as needed. Dispense fifteen (15). No refills. Substitution is permissible. -- Reyna Mendiola A.R.N.P.
--- NOTE | 2017-04-02 21:32 | ED DISCHARGE INSTRUCTIONS ---
Patient: WILFREDO LEE General Instructions [facility] VisitID: [id number] [place] [address] 37y, M Registration Date/Time: 04/02/2017 Acute urinary tract infection with cystitis, pyelonephritis and hematuria. Not associated with indwelling catheter or obstruction. INSTRUCTIONS Drink plenty of fluids. Warnings: GENERAL WARNINGS: Return or contact your physician immediately if your condition worsens or changes unexpectedly, if not improving as expected, or if other problems arise. Specifically return if problem worsens. Prescription Medications: Cipro 500 mg: take 1 tab orally every 12 hours for 10 days. Dispense twenty (20). No refills. Substitution is permissible. [place] 5 mg / 325 mg tablets: take 1 to 2 orally every 6 hours as needed for pain. Dispense fifteen (15). No refills. Substitution is permissible. Toradol 10 mg tablets: Take 1 tablet orally every 6 hours as needed. Dispense fifteen (15). No refills. Substitution is permissible. Follow-up: Follow up with your doctor in about two days even if well. Call for an appointment. Summary of care provided to patient. Understanding of the discharge instructions verbalized by patient. ADDITIONAL INFORMATION Bladder Infection,Male (Adult) A bladder infection ("cystitis" or "UTI") usually causes a constant urge to urinate, and a burning when passing urine. Urine may be cloudy, smelly or dark. There may be also be pain in the lower abdomen. Cystitis in males is not common. It may be caused by a partial blockage in the urinary system that keeps the bladder from emptying completely. This is most often related to an enlarged prostate gland. Home Care: Drink lots of fluids (at least 6-8 glasses a day). This will flush the bacteria out of your bladder. Avoid sexual intercourse until your symptoms are gone. Avoid caffeine, alcohol, and spicy foods. They could irritate the bladder. A bladder infection is treated with antibiotics. You may also be given Pyridium (generic - phenazopyridine) to reduce burning with urination. This will cause urine to become a bright orange color, which can stain clothing. Follow Up with your doctor or this facility if ALL symptoms have not cleared within five days. It is important to keep your follow up appointment to discuss with your doctor the need for further tests of the urinary tract. Get Prompt Medical Attention if any of the following occur: Fever of 100.4F (38C) or higher, or as directed by your healthcare provider No improvement by the third day of treatment Increasing back or abdominal pain Repeated vomiting; unable to keep medicine down Weakness, dizziness or fainting Kidney Infection [Adult, Female] An infection of the kidney is also called "pyelonephritis". It usually starts as a bladder infection ("cystitis") which spreads to the kidneys. Pyelonephritis is more serious than a bladder infection. It can cause severe illness if not treated properly. The usual symptoms include an aching pain in the back, side or lower abdomen. Other symptoms may include fever, chills, nausea, vomiting, an urge to urinate and a burning sensation when passing urine. Home Care: Stay home from work or school. Rest in bed until your fever breaks and you are feeling better. Drink lots of fluid (at least 6-8 glasses a day, unless you must restrict fluids for other medical reasons). This will force the medicine into your urinary system and flush the bacteria out of your body. Avoid sexual intercourse until you have finished all of your medicine and your symptoms have gone away. Avoid caffeine, alcohol and spicy foods which may irritate the kidney and bladder. You may use acetaminophen (Tylenol) or ibuprofen (Motrin, Advil) to control pain, unless another pain medicine was prescribed. [NOTE: If you have chronic liver or kidney disease or ever had a stomach ulcer or GI bleeding, talk with your doctor before using these medicines.] Follow Up with your doctor or as advised by our staff for a repeat urine test in 10 days. This will ensure that your infection is fully cleared. [NOTE: If you had an X-ray or CT scan, it will be reviewed by a specialist. You will be notified of any new findings that may affect your care.] Get Prompt Medical Attention if any of the following occur: Fever over 100.4F (38.0C) after 48 hours of treatment No improvement by the third day of treatment Increasing back or abdominal pain Repeated vomiting or inability to take oral medicine Weakness, dizziness or fainting Ciprofloxacin Hydrochloride Oral tablet What is this medicine? CIPROFLOXACIN (sip cesar FLOX a sin) is a quinolone antibiotic. It is used to treat certain kinds of bacterial infections. It will not work for colds, flu, or other viral infections. How should I use this medicine? Take this medicine by mouth with a glass of water. Follow the directions on the prescription label. Take your medicine at regular intervals. Do not take your medicine more often than directed. Take all of your medicine as directed even if you think your are better. Do not skip doses or stop your medicine early. You can take this medicine with food or on an empty stomach. It can be taken with a meal that contains dairy or calcium, but do not take it alone with a dairy product, like milk or yogurt or calcium-fortified juice. A special MedGuide will be given to you by the pharmacist with each prescription and refill. Be sure to read this information carefully each time. Talk to your braille operator regarding the use of this medicine in children. Special care may be needed. What side effects may I notice from receiving this medicine? Side effects that you should report to your doctor or health aged or disabled carer as soon as possible: - allergic reactions like skin rash, itching or hives, swelling of the face, lips, or tongue - breathing problems - confusion, nightmares or hallucinations - feeling faint or lightheaded, falls - irregular heartbeat - joint, muscle or tendon pain or swelling - pain or trouble passing urine -persistent headache with or without blurred vision - redness, blistering, peeling or loosening of the skin, including inside the mouth - seizure - unusual pain, numbness, tingling, or weakness Side effects that usually do not require medical attention (report to your doctor or health aged or disabled carer if they continue or are bothersome): - diarrhea - nausea or stomach upset - white patches or sores in the mouth What may interact with this medicine? Do not take this medicine with any of the following medications: cisapride droperidol terfenadine tizanidine This medicine may also interact with the following medications: antacids caffeine cyclosporin didanosine (ddI) buffered tablets or powder medicines for diabetes medicines for inflammation like ibuprofen, naproxen methotrexate multivitamins omeprazole phenytoin probenecid sucralfate theophylline warfarin What if I miss a dose? If you miss a dose, take it as soon as you can. If it is almost time for your next dose, take only that dose. Do not take double or extra doses. Where should I keep my medicine? Keep out of the reach of children. Store at room temperature below 30 degrees C (86 degrees F). Keep container tightly closed. Throw away any unused medicine after the expiration date. What should I tell my health care provider before I take this medicine? They need to know if you have any of these conditions: -bone problems -cerebral disease -joint problems -irregular heartbeat -kidney disease -liver disease -myasthenia gravis -seizure disorder -tendon problems -an unusual or allergic reaction to ciprofloxacin, other antibiotics or medicines, foods, dyes, or preservatives - or trying to get -breast-feeding What should I watch for while using this medicine? Tell your doctor or health aged or disabled carer if your symptoms do not improve. Do not treat diarrhea with over the counter products. Contact your doctor if you have diarrhea that lasts more than 2 days or if it is severe and watery. You may get drowsy or dizzy. Do not drive, use machinery, or do anything that needs mental alertness until you know how this medicine affects you. Do not stand or sit up quickly, especially if you are an older patient. This reduces the risk of dizzy or fainting spells. This medicine can make you more sensitive to the sun. Keep out of the sun. If you cannot avoid being in the sun, wear protective clothing and use sunscreen. Do not use sun lamps or tanning beds/booths. Avoid antacids, aluminum, calcium, iron, magnesium, and zinc products for 6 hours before and 2 hours after taking a dose of this medicine. Hydrocodone Bitartrate, Acetaminophen Oral tablet What is this medicine? ACETAMINOPHEN; HYDROCODONE (a set a JAYY anjel fen; annie droe KOE done) is a pain reliever. It is used to treat mild to moderate pain. How should I use this medicine? Take this medicine by mouth. Swallow it with a full glass of water. Follow the directions on the prescription label. If the medicine upsets your stomach, take the medicine with food or milk. Do not take more than you are told to take. Talk to your braille operator regarding the use of this medicine in children. This medicine is not approved for use in children. What side effects may I notice from receiving this medicine? Side effects that you should report to your doctor or health aged or disabled carer as soon as possible: allergic reactions like skin rash, itching or hives, swelling of the face, lips, or tongue breathing problems confusion feeling faint or lightheaded, falls stomach pain yellowing of the eyes or skin Side effects that usually do not require medical attention (report to your doctor or health aged or disabled carer if they continue or are bothersome): nausea, vomiting stomach upset What may interact with this medicine? alcohol antihistamines isoniazid medicines for depression, anxiety, or psychotic disturbances medicines for sleep muscle relaxants naltrexone narcotic medicines (opiates) for pain phenobarbital ritonavir tramadol What if I miss a dose? If you miss a dose, take it as soon as you can. If it is almost time for your next dose, take only that dose. Do not take double or extra doses. Where should I keep my medicine? Keep out of the reach of children. This medicine can be abused. Keep your medicine in a safe place to protect it from theft. Do not share this medicine with anyone. Selling or giving away this medicine is dangerous and against the law. Store at room temperature between 15 and 30 degrees C (59 and 86 degrees F). Protect from light. Keep container tightly closed. Throw away any unused medicine after the expiration date. Discard unused medicine and used packaging carefully. Pets and children can be harmed if they find used or lost packages. What should I tell my health care provider before I take this medicine? They need to know if you have any of these conditions: brain tumor Crohn's disease, inflammatory bowel disease, or ulcerative colitis drink more than 3 alcohol-containing drinks per day drug abuse or addiction head injury heart or circulation problems kidney disease or problems going to the bathroom liver disease lung disease, asthma, or breathing problems an unusual or allergic reaction to acetaminophen, hydrocodone, other opioid analgesics, other medicines, foods, dyes, or preservatives or trying to get breast-feeding What should I watch for while using this medicine? Tell your doctor or health aged or disabled carer if your pain does not go away, if it gets worse, or if you have new or a different type of pain. You may develop tolerance to the medicine. Tolerance means that you will need a higher dose of the medicine for pain relief. Tolerance is normal and is expected if you take the medicine for a long time. Do not suddenly stop taking your medicine because you may develop a severe reaction. Your body becomes used to the medicine. This does NOT mean you are addicted. Addiction is a behavior related to getting and using a drug for a non-medical reason. If you have pain, you have a medical reason to take pain medicine. Your doctor will tell you how much medicine to take. If your doctor wants you to stop the medicine, the dose will be slowly lowered over time to avoid any side effects. You may get drowsy or dizzy when you first start taking the medicine or change doses. Do not drive, use machinery, or do anything that may be dangerous until you know how the medicine affects you. Stand or sit up slowly. There are different types of narcotic medicines (opiates) for pain. If you take more than one type at the same time, you may have more side effects. Give your health care provider a list of all medicines you use. Your doctor will tell you how much medicine to take. Do not take more medicine than directed. Call emergency for help if you have problems breathing. The medicine will cause constipation. Try to have a bowel movement at least every 2 to 3 days. If you do not have a bowel movement for 3 days, call your doctor or health aged or disabled carer. Too much acetaminophen can be very dangerous. Do not take Tylenol (acetaminophen) or medicines that contain acetaminophen with this medicine. Many non-prescription medicines contain acetaminophen. Always read the labels carefully. Ketorolac Tromethamine Oral tablet What is this medicine? KETOROLAC (ihsan toe ROLE ak) is a non-steroidal anti-inflammatory drug (NSAID). It is used for a short while to treat moderate to severe pain, including pain after surgery. It should not be used for more than 5 days. How should I use this medicine? Take this medicine by mouth with a full glass of water. Follow the directions on the prescription label. Take your medicine at regular intervals. Do not take your medicine more often than directed. Do not take more than the recommended dose. A special MedGuide will be given to you by the pharmacist with each prescription and refill. Be sure to read this information carefully each time. Talk to your braille operator regarding the use of this medicine in children. While this drug may be prescribed for children as young as 16 years of age for selected conditions, precautions do apply. Patients over 65 years old may have a stronger reaction and need a smaller dose. What side effects may I notice from receiving this medicine? Side effects that you should report to your doctor or health aged or disabled carer as soon as possible: allergic reactions like skin rash, itching or hives, swelling of the face, lips, or tongue black or tarry stools breathing problems changes in vision chest pain high blood pressure nausea or vomiting redness, blistering, peeling or loosening of the skin, including inside the mouth severe abdominal pain slurred speech or weakness on one side of the body unexplained weight gain or swelling unusual bleeding or bruising unusually weak or tired yellowing of eyes or skin Side effects that usually do not require medical attention (report to your doctor or health aged or disabled carer if they continue or are bothersome): diarrhea dizziness headache heartburn What may interact with this medicine? Do not take this medicine with any of the following medications: aspirin and aspirin-like medicines cidofovir methotrexate NSAIDs, medicines for pain and inflammation, like ibuprofen or naproxen pemetrexed probenecid This medicine may also interact with the following medications: alcohol alendronate alprazolam carbamazepine cyclosporine diuretics flavocoxid fluoxetine ginkgo lithium medicines for high blood pressure like enalapril medicines that affect platelets like pentoxifylline medicines that treat or prevent blood clots like heparin, warfarin muscle relaxants phenytoin steroid medicines like prednisone or cortisone thiothixene What if I miss a dose? If you miss a dose, take it as soon as you can. If it is almost time for your next dose, take only that dose. Do not take double or extra doses. Where should I keep my medicine? Keep out of the reach of children. Store at room temperature between 20 and 25 degrees C (68 and 77 degrees F). Throw away any unused medicine after the expiration date. What should I tell my health care provider before I take this medicine? They need to know if you have any of these conditions: asthma bleeding problems like hemophilia cigarette smoker drink more than 3 alcohol containing drinks a day heart disease or circulation problems such as heart failure or leg edema (fluid retention) high blood pressure kidney disease liver disease stomach bleeding or ulcers an unusual or allergic reaction to ketorolac, aspirin, other NSAIDs, other medicines, foods, dyes, or preservatives or trying to get breast-feeding What should I watch for while using this medicine? Tell your doctor or health aged or disabled carer if your pain does not get better. Talk to your doctor before taking another medicine for pain. Do not treat yourself. This medicine does not prevent heart attack or stroke. In fact, this medicine may increase the chance of a heart attack or stroke. The chance may increase with longer use of this medicine and in people who have heart disease. If you take aspirin to prevent heart attack or stroke, talk with your doctor or health aged or disabled carer. Do not take medicines such as ibuprofen and naproxen with this medicine. Side effects such as stomach upset, nausea, or ulcers may be more likely to occur. Many medicines available without a prescription should not be taken with this medicine. This medicine can cause ulcers and bleeding in the stomach and intestines at any time during treatment. Do not smoke cigarettes or drink alcohol. These increase irritation to your stomach and can make it more susceptible to damage from this medicine. Ulcers and bleeding can happen without warning symptoms and can cause . You may get drowsy or dizzy. Do not drive, use machinery, or do anything that needs mental alertness until you know how this medicine affects you. Do not stand or sit up quickly, especially if you are an older patient. This reduces the risk of dizzy or fainting spells. This medicine can cause you to bleed more easily. Try to avoid damage to your teeth and gums when you brush or floss your teeth. You have been given the following additional information: Bladder Infection, Male (Adult) Pyelonephritis, Female (Adult) Ciprofloxacin Hydrochloride Oral tablet Hydrocodone Bitartrate, Acetaminophen Oral tablet Ketorolac Tromethamine Oral tablet (Electronically signed by Reyna Mendiola A.R.N.P. 04/02/2017 21:31)
--- NOTE | 2017-04-02 21:32 | ED MAR SUMMARY ---
..... Medication Administration Record [facility] [address] [place] [address] Patient: WILFREDO LEE Visit ID: [id number] 37y, M Weight: 104.3 kg Height/Length: 73 in BMI: 30.3 ALLERGIES: Tylenol Start 14:38 04/02/2017 Stephen Bailon R.N., Stop 15:41 04/02/2017 Stephen Bailon R.N. Medication Administered: IV NS (SALINE), Dose: IV Fluids, Bolus: 1000 mL over 1 hour(s), Dispensed: 1000 mL bag, Site: #1 right AC. Medication Ordered: IV NS : initial bolus none -, then 1000 mL/hr for X1 (NOW). Given 14:46 04/02/2017 Stephen Bailon R.N. Medication Administered: TORADOL [IVP], Dose: 30 mg IVP over 2 minute(s), Site: #1 right AC. Medication Ordered: Toradol IV 30 mg (NOW). Start 15:46 04/02/2017 Stephen Bailon R.N., Stop 16:08 04/02/2017 Stephen Bailon R.N. Medication Administered: CEFTRIAXONE [IVPB], Dose: 1 gm IVPB over 30 minute(s), Rate: 100 mL/hr, Dispensed: 50 mL bag, Site: #1 right AC. Medication Ordered: Ceftriaxone IV 1 gm/50mL (NOW).
--- NOTE | 2017-04-02 21:32 | ED MED RECONCILIATION SUMMARY ---
Patient: WILFREDO LEE Medication Reconciliation Report [facility] VisitID: [id number] [place] [address] 37y, M Registration Date/Time: 04/02/2017 Weight: 104.3 kg Height/Length: 73 in. BMI: 30.3 ALLERGIES: Tylenol The patient's Home Medications are listed below: THE FOLLOWING MEDICATIONS NEED TO BE RECONCILED: LIsinopril Methadone HCl Oral (10 mg), 2xdaily The source(s) of the original Home Medication information: Not obtained. The following Medications were given to the patient in the Emergency Department: IV NS IV Fluids bolus 1000 mL over 1 hour(s), administered: 04/02/2017 2:38:00 PM Toradol [IVP] IVP 30 mg, administered: 04/02/2017 2:46:00 PM Ceftriaxone [IVPB] IVPB bolus 0, then 1 gm 100 mL/hr, administered: 04/02/2017 3:46:00 PM The following Medications were prescribed to the patient: Cipro 500 mg: take 1 tab orally every 12 hours for 10 days. Dispense twenty (20). No refills. Substitution is permissible. -- Reyna Mendiola, A.R.N.P. Gilbert 5 mg / 325 mg tablets: take 1 to 2 orally every 6 hours as needed for pain. Dispense fifteen (15). No refills. Substitution is permissible. -- Reyna Mendiola A.R.N.P. Toradol 10 mg tablets: Take 1 tablet orally every 6 hours as needed. Dispense fifteen (15). No refills. Substitution is permissible. -- Reyna Mendiola A.R.N.P.
--- NOTE | 2017-04-02 21:32 | ED MAR SUMMARY ---
..... Medication Administration Record [facility] [address] [place] [address] Patient: WILFREDO LEE Visit ID: [id number] 37y, M Weight: 104.3 kg Height/Length: 73 in BMI: 30.3 ALLERGIES: Tylenol Start 14:38 04/02/2017 Stephen Bailon R.N., Stop 15:41 04/02/2017 Stephen Bailon R.N. Medication Administered: IV NS (SALINE), Dose: IV Fluids, Bolus: 1000 mL over 1 hour(s), Dispensed: 1000 mL bag, Site: #1 right AC. Medication Ordered: IV NS : initial bolus none -, then 1000 mL/hr for X1 (NOW). Given 14:46 04/02/2017 Stephen Bailon R.N. Medication Administered: TORADOL [IVP], Dose: 30 mg IVP over 2 minute(s), Site: #1 right AC. Medication Ordered: Toradol IV 30 mg (NOW). Start 15:46 04/02/2017 Stephen Bailon R.N., Stop 16:08 04/02/2017 Stephen Bailon R.N. Medication Administered: CEFTRIAXONE [IVPB], Dose: 1 gm IVPB over 30 minute(s), Rate: 100 mL/hr, Dispensed: 50 mL bag, Site: #1 right AC. Medication Ordered: Ceftriaxone IV 1 gm/50mL (NOW).
== END 2017-04-02 15:47 | disposition home or self-care (01) ==
LOC: ED SRH 13:41
DX: N30.00 Acute cystitis without hematuria (principal); B96.20 Unspecified Escherichia coli [E. coli] as the cause of diseases classified elsewhere; N12 Tubulo-interstitial nephritis, not specified as acute or chronic; R31.9 Hematuria, unspecified; K21.9 Gastro-esophageal reflux disease without esophagitis; Z79.891 Long term (current) use of opiate analgesic; Z79.899 Other long term (current) drug therapy; Z88.6 Allergy status to analgesic agent
CPT/HCPCS: 90004; 90100; 90148; 90469; 95059